=== PATIENT | female | born 1980 | race Caucasian/White ===

== ENCOUNTER 2018-01-09 13:27 | Outpatient (CLI) | payer BC | END 2018-01-09 13:28 | disposition home or self-care (01) | LOC: BICULT 13:27 | PROVIDERS: ATTEND Family Medicine | DX: N92.0 Excessive and frequent menstruation with regular cycle (principal); D25.9 Leiomyoma of uterus, unspecified; R93.8 Abnormal findings on diagnostic imaging of other specified body structures; N85.9 Noninflammatory disorder of uterus, unspecified | CPT/HCPCS: 76856 ==

== ENCOUNTER 2018-04-26 16:58 | Outpatient (CLI) | payer BC ==
[2018-04-26 17:30] LABS: Hemoglobin 12.9 g/dL (12.0-16.0); Mean Corpuscular HGB CONC 32.5 g/dL (32.0-36.0); Mean Corpuscular Volume 92.3 fL (78.0-98.0); Mean Platelet Volume 6.8 fL (7.4-10.4); Platelet Count 368 thou/uL (130-400); RBC Distribution Width 12.2 % (11.5-14.5); White Blood Cell (WBC) Count 9.4 thou/uL (4.8-10.8)
== END 2018-04-26 16:59 | disposition home or self-care (01) ==
LOC: LABBT 16:58
PROVIDERS: ATTEND Student in an Organized Health Care Education/Training Program
DX: Z01.812 Encounter for preprocedural laboratory examination (principal); N83.201 Unspecified ovarian cyst, right side; D25.9 Leiomyoma of uterus, unspecified; N92.0 Excessive and frequent menstruation with regular cycle
CPT/HCPCS: 84702; 85027; 86850; 86900; 86901

== ENCOUNTER 2018-04-30 06:06 | Day surgery (SDC) | payer BC ==
[2018-04-26 17:54] VITALS: BMI 39.2
[2018-04-30] MEDS ORDERED: Famotidine/PF 20 mg/2ml Vial ONE (06:23)
[2018-04-30] MEDS ORDERED: CEFAZOLIN 2 GM/50 ML BAG ONE (06:23)
[2018-04-30] MEDS ORDERED: CeleCOXIB 100 MG CAP ONE (06:23)
[2018-04-30] MEDS ORDERED: Fentanyl 100 MCG/2 ML VIAL ONE ×2 (06:59→09:45)
[2018-04-30] MEDS ORDERED: Bupivacaine HCl 0.5%/Epinephrine 1:200,000/PF 30 ml Vial ONE (07:19)
[2018-04-30] MEDS ORDERED: Midazolam HCl 2 mg/2 ml Vial ONE (07:37)
--- NOTE | 2018-04-30 10:31 | OP ---
DATE OF PROCEDURE: 04/30/2018 PREOPERATIVE DIAGNOSES: 1. Uterine fibroids. 2. Menorrhagia. 3. Dysmenorrhea. 4. Right ovarian mass. POSTOPERATIVE DIAGNOSES: 1. Uterine fibroids. 2. Menorrhagia. 3. Dysmenorrhea. 4. Right ovarian mass. 5. Endometriosis. PROCEDURE: Robotic-assisted total laparoscopic hysterectomy, right salpingo-oophorectomy and left sa lpingectomy. ANESTHESIA: General endotracheal. ATTENDING SURGEON: Celeste Staples M.D. RN ANGIOGRAPHY: Kulwinder Stanley D.O. ESTIMATED BLOOD LOSS: 50 mL INTRAVENOUS FLUIDS: 800 mL of crystalloid. URINE OUTPUT: 80 mL of clear urine. COMPLICATIONS: None. DRAINS: None. PATHOLOGY: Uterus, cervix, bilateral fallopian tubes and right ovary. FINDINGS: On exam under anesthesia, mobile, anteverted 10-week size uterus sounding to 9 cm, normal- appearing cervix and vagina. On intraabdominal survey, the uterus had smooth contours. The fallopia n tubes were normal bilaterally. The left ovary was normal appearing and the right ovary had approxi mately a 4-cm ovarian cyst/mass. The upper abdomen was normal. There were 4 red endometriotic impla nts present on the posterior cul-de-sac. Following the procedure, the backfilling of the bladder karo wed no extravasation of saline from the bladder mucosa. Bladder mucosa away from the suture line. L ow pressure check demonstrated excellent hemostasis and ureters were noted transperitoneally througho ut the case vermiculating. OPERATIVE INDICATIONS: A 37-year-old P2 presented with menorrhagia and dysmenorrhea, had ultrasound findings of uterine fibroid as well as a right ovarian mass consistent with a dermoid. She declined to undergo hormonal management as she had previously had side effects on hormones and desired definit mina management with hysterectomy and was counseled on risks, benefits and alternatives extensively an d desired to proceed. OPERATIVE TECHNIQUE: The patient was taken to the operating room where general anesthesia was obtain ed without difficulty. The patient was prepped and draped in the sterile fashion in the dorsal litho rj position. Lopez catheter was placed in the bladder and connected to a Shawn syringe. The spec ulum was placed in the vagina and the anterior lip of the cervix was grasped with single tooth tenacu lum. The uterus was sounded to 9 cm. The ALLYN manipulator was assembled with an 8 cm tip and a 4 cm colpotomizer ring. The cervix was then progressively dilated with Sebastian dilators. The ALLYN tip was inserted to the uterine fundus. Balloon was inflated. Speculum and tenaculum were removed out of th e vagina and the colpotomizer ring was advanced snugly around the cervix and the balloons were inflat ed. Legs were placed in low lithotomy. Attention was turned to the abdomen. Marcaine 0.5% with epi nephrine was infiltrated into the umbilicus and a 12-mm skin incision was made. The Veress needle wa s passed into the abdomen noting an opening pressure of 6 mmHg. Pneumoperitoneum was obtained withou t difficulty. The Veress needle was removed. The 12 mm trocar was advanced into the abdomen and con firmed placement with robotic camera. Steep Trendelenburg was obtained. Right and left lower quadra nt 8 mm robotic trocars were placed under direct visualization after infiltrating with anesthetic. A right upper quadrant 11 mm pharmacist assistant port was also placed under direct visualization after infiltrat ing with anesthetic. The robot was then docked. The right robotic arm contained a monopolar scissor s, left robotic arm contained a fenestrated bipolar. The surgeon console took control. The left fal lopian tube was grasped and elevated. Mesosalpinx was sequentially cauterized with the fenestrated a nd transected with the scissors until the uterine cornua was met. The fallopian tube was then clampe d across, cauterized, transected and removed out of the abdomen. The utero-ovarian was cauterized wi th the fenestrated and transected in the mid portion and carried down to the level of the round ligam ent that was cauterized and transected in the midportion. The anterior lip of the broad ligament was opened up down to the level of the bladder flap, undermining with the fenestrated to ensure a clear window. The bladder flap was then further developed incising adventitial fibers while elevating on t he vesicouterine peritoneum. This was taken all across the anterior cervix. The posterior leaf of b road ligament was then dropped down to the level of the uterosacral and the vessels were skeletonized on the left side and this allowed the ureter to fall away from the uterine pedicle. The vessels wer e then clamped and cauterized at the level of the internal cervical os. Attention was turned to the patient's right side where the fallopian tube was grasped and elevated. The IP was identified as wel l as the ureter that was running just medially to the IP at the pelvic brim. The IP was clamped with the fenestrated hugging underneath the ovary and cauterized and subsequently transected. The mesova rium was then cauterized and transected obtaining hemostasis with the fenestrated down to the mid por tion of the round ligament that was clamped, cauterized and transected. The anterior leaf was then i ncised down to the level of the internal cervical os that met the contralateral side's incision. The posterior leaf was also dropped down to the level of the uterosacral and the vessels were skeletoniz ed. The ureter on the right side was running more medial and closer to the uterine vessels; however, careful dissection through the retroperitoneum allowed the ureter to fall away more laterally. The vessels were adequately skeletonized and a bladder flap was adequately developed using a scoring tech nique on the pubocervical fascia and blunt dissection down distally below the level of the colpotomiz er ring. The vessels were then clamped and cauterized at the level of the internal cervical os and t his was performed multiple times. Anterior colpotomy was then performed. Posterior colpotomy was pe rformed. The vascular pedicles remained and these were then cauterized again slipping the fenestrate d underneath the pedicle in between the colpotomizer ring and cauterizing. The vessels were then inc ised just above the level of the internal cervical os to allow the pedicle to fall away further later ally from the vaginal cuff, preventing any ureteral kinking while closure of the vaginal cuff. This was performed bilaterally and hemostasis was noted. The uterus was then placed into the vagina as a means to maintain pneumoperitoneum and the scissors were traded out for the needle lease purchase truck driver. Irrigatio n of the vaginal cuff was performed. There was some venous oozing from the pedicle on the right side . This pedicle was elevated. It was noted that this pedicle resided just over the ureter and so car e was taken to protect the ureter from any thermal damage by holding it away with the needle lease purchase truck driver w hile cauterizing and elevating off the ureter with the fenestrated and short small energy delivery to the area that was bleeding and hemostasis was achieved after careful cautery. The 2-0 Stratafix sut ure was then used to close the vaginal cuff, ensuring incorporation of vaginal mucosa in each bite an d posterior peritoneum and careful closure approximately 1 cm in between bites. This was run back fo r a second layer to ensure adequate closure and hemostasis was noted. There were several areas in th e suture line that was noted to possibly have the bladder be in close proximity to. Blunt dissection with the needle lease purchase truck driver was used to bring this tissue further away. The bladder was then backfilled and suture line was carefully examined and it was noted that the bladder mucosa was at least 1 cm debra y from the entire length of the suture line. There were no bladder defects or extravasation of salin e upon backfilling of the bladder and the bladder was then decompressed. Irrigation of the pedicles, and vaginal cuff was performed. Low pressure check was performed. Hemostasis was noted to be excel lent. All instruments were then removed out of the abdomen. The robot was undocked and the fascia o f the camera port was closed with a 0 Vicryl in a [id number] fashion. The skin was closed with 4-0 Monocryl in a subcuticular fashion and Dermabond was applied. The patient tolerated the procedur e well. Sponge, lap and needle counts were correct x2. The vagina was checked and all instruments w ere removed out of the vagina and hemostasis was noted to be excellent. The patient received Ancef 2 grams prior to procedure.
[2018-04-30] MEDS ORDERED: Ketorolac Tromethamine 30 MG/ML VIAL ONE (16:14)
[2018-04-30] MEDS ORDERED: Lidocaine 1% PF 5 ML VIAL ONE (16:14)
[2018-04-30] MEDS ORDERED: Ondansetron PF 4 MG/2 ML Vial ONE (16:14)
[2018-04-30] MEDS ORDERED: Glycopyrrolate 0.2 MG/ML 5 ML SYRINGE ONE (16:14)
[2018-04-30] MEDS ORDERED: Dexamethasone 20 MG/5 ML VIAL ONE (16:14)
[2018-04-30] MEDS ORDERED: PROPOFOL 200 MG/20 ML VIAL ONE (16:14)
== END 2018-04-30 14:05 | disposition home or self-care (01) ==
LOC: SDC 06:06
PROVIDERS: ATTEND Student in an Organized Health Care Education/Training Program
PROC: 0UT04ZZ Resection of Right Ovary, Percutaneous Endoscopic Approach (ICD-10-PCS; principal; 2018-04-30)
PROC: 0UT74ZZ Resection of Bilateral Fallopian Tubes, Percutaneous Endoscopic Approach (ICD-10-PCS; principal; 2018-04-30)
PROC: 0UT94ZZ Resection of Uterus, Percutaneous Endoscopic Approach (ICD-10-PCS; principal; 2018-04-30)
DX: D39.0 Neoplasm of uncertain behavior of uterus (principal); D25.1 Intramural leiomyoma of uterus; N83.01 Follicular cyst of right ovary; N83.8 Other noninflammatory disorders of ovary, fallopian tube and broad ligament; Z79.899 Other long term (current) drug therapy; Z88.8 Allergy status to other drugs, medicaments and biological substances
CPT/HCPCS: 88307; 96374; J0670; J1100; J1885; J2001; J2250; J2405; J2704; J3010; S0028

== ENCOUNTER 2021-11-08 17:00 | Outpatient (CLI) | payer BC | END 2021-11-08 17:01 | disposition home or self-care (01) | LOC: SLEEPLAB 17:00 | PROVIDERS: ATTEND Family Medicine | DX: G47.33 Obstructive sleep apnea (adult) (pediatric) (principal); G47.419 Narcolepsy without cataplexy; R53.83 Other fatigue; E66.9 Obesity, unspecified; R06.83 Snoring; G47.00 Insomnia, unspecified; I10 Essential (primary) hypertension; Z68.39 Body mass index [BMI] 39.0-39.9, adult | CPT/HCPCS: 95800 ==

== ENCOUNTER 2021-11-29 10:45 | Outpatient (CLI) | payer BC ==
[2021-11-29 11:42] LABS: #Eosinphils 0.3 10x3/uL (0.0-0.5); #Monocytes 0.5 10x3/uL (0.0-1.1); #Neutrophils 4.9 10x3/uL (1.5-8.4); %Basophils 0.5 % (0.0-2.0); %Lymphocytes 33.6 % (18.0-47.0); %Monocytes 6.1 % (0.0-10.0); %Neutrophils 56.5 % (40.0-75.0); Mean Corpuscular HGB CONC 32.6 g/dL (32.0-36.0); Mean Corpuscular Hemoglobin 28.3 pg (27.0-33.0); Mean Corpuscular Volume 86.8 fl (81.6-98.3); Mean Platelet Volume 9.4 fl (7.4-10.4); Platelet Count 350 10x3/uL (150-450); RBC Distribution Width 13.5 % (11.5-14.5); Red Blood Cell (RBC) Count 4.24 10x6/uL (3.90-5.03); White Blood Cell (WBC) Count 8.6 10x3/uL (3.5-10.5)
[2021-11-29 12:51] LABS: Anion Gap 17 mmol/L (10-20); BUN (Urea Nitrogen) 9 mg/dL (7.0-18.7); Calc. Creatinine Clearance 0 mL/min (70-130); Calcium 8.9 mg/dL (7.8-10.44); Carbon Dioxide 23 mmol/L (22-29); Chloride 105 mmol/L (98-107); Glucose 111 mg/dL (70-105); Sodium 141 mmol/L (136-145)
== END 2021-11-29 10:46 | disposition home or self-care (01) ==
LOC: LABBT 10:45
PROVIDERS: ATTEND Specialist
DX: Z01.812 Encounter for preprocedural laboratory examination (principal); M25.869 Other specified joint disorders, unspecified knee; Z20.822 Contact with and (suspected) exposure to COVID-19
CPT/HCPCS: 80048; 85025; U0003; U0005

== ENCOUNTER 2021-12-02 05:57 | Day surgery (SDC) | payer BC ==
[2021-11-29 13:58] VITALS: BMI 39.6
[2021-12-02] MEDS ORDERED: Ketorolac Tromethamine 30 MG/ML VIAL ONE (06:29)
[2021-12-02] MEDS ORDERED: Acetaminophen 500 MG TAB ONE (06:29)
[2021-12-02] MEDS ORDERED: Lidocaine 1% w/Epinephrine 1:100K 20 ML VIAL ONE (06:43)
[2021-12-02] MEDS ORDERED: Bupivacaine PF 0.5% 30 ML VIAL ONE (06:43)
[2021-12-02] MEDS ORDERED: Bacitracin Zinc Ointment 30 gm TUBE ONE (06:43)
[2021-12-02] MEDS ORDERED: fentaNYL Citrate/PF 100 MCG/2 ML SYRINGE ONE (07:05)
[2021-12-02] MEDS ORDERED: CEFAZOLIN 2 GM VIAL ONE (07:55)
[2021-12-02] MEDS ORDERED: Sodium Chloride 0.9% 100 ML ONE (07:55)
[2021-12-02] MEDS ORDERED: Fentanyl 100 MCG/2 ML VIAL ONE (09:29)
[2021-12-02] MEDS ORDERED: HYDROcodone/Acetaminophen 5/325 mg Tablet ONE (10:41)
== END 2021-12-02 11:37 | disposition home or self-care (01) ==
LOC: SDC 05:57
PROVIDERS: ATTEND Specialist
PROC: 0JBL0ZZ Excision of Right Upper Leg Subcutaneous Tissue and Fascia, Open Approach (ICD-10-PCS; principal; 2021-12-02)
DX: D17.23 Benign lipomatous neoplasm of skin and subcutaneous tissue of right leg (principal); I10 Essential (primary) hypertension; E78.5 Hyperlipidemia, unspecified; G47.30 Sleep apnea, unspecified; E03.9 Hypothyroidism, unspecified; Z79.890 Hormone replacement therapy; Z79.899 Other long term (current) drug therapy; Z88.8 Allergy status to other drugs, medicaments and biological substances
CPT/HCPCS: 88304; 93005; 93010; J0690; J1885; J3010; J3490; S0020

== ENCOUNTER 2022-10-04 03:45 | Outpatient (CLI) | payer BC | END 2022-10-04 03:46 | disposition home or self-care (01) | LOC: DTY/OP 03:45 | PROVIDERS: ATTEND Family Medicine | DX: R63.5 Abnormal weight gain (principal) | CPT/HCPCS: 97802 ==

== ENCOUNTER 2023-11-27 07:59 | Outpatient (CLI) | payer BC | END 2023-11-27 08:00 | disposition home or self-care (01) | LOC: BICMAMMO 07:59 | PROVIDERS: ATTEND Family Medicine | DX: Z12.31 Encounter for screening mammogram for malignant neoplasm of breast (principal); Z80.3 Family history of malignant neoplasm of breast | CPT/HCPCS: 77063; 77067 ==